=== PATIENT | male | born 1980 | race Caucasian/White ===

== ENCOUNTER 2024-01-30 12:56 | Inpatient (IN) | payer MEDICAID, SELFPAY ==
[2024-01-30 13:00] VITALS: BMI 32.1
[2024-01-30 13:05] VITALS: BP 114/80; PULSE 78; RESP 18; TEMP 36.8; O2SAT 94
[2024-01-30 13:33] VITALS: BP 114/80; PULSE 78; RESP 18; TEMP 36.8; O2SAT 94
--- NOTE | 2024-01-30 13:40 | ED.C_ITS ---
Documented by User: CHANTALE Nguyen 01/30/24 15:10 HPI - Psych 2 General: Chief Complaint: Psychiatric Symptoms Stated Complaint: mhe Time Seen by Provider: 01/30/24 13:06 Source: patient Mode of arrival: EMS Limitations: no limitations History of Present Illness: Patient is a 43-year-old male who presents to the emergency department via ambulance due to homicidal and suicidal ideations onset today. Patient has extensive psychiatric history, states he was last seen here in the neuropsychiatric unit approximately 10 years ago. He states he has been taking his medications as prescribed and has been following up with psychiatry and therapy. He states today he got angry at his daughter's boyfriend, as reportedly he was not letting the patient see his grandchildren. This caused the patient to become homicidal against the boyfriend, however he called the ambulance before he let himself get out of control, per the patient. In addition he is also noting suicidal ideations where his plan is to cut himself, or bite himself to the extent to where his wounds cannot be repaired. He states that he thinks he needs to come and see a psychiatrist because of the thoughts, as they have been worsening recently. He denies any hallucinations at this time. He does state that he smokes marijuana regularly and did have a couple of shots prior to arrival to calm his nerves. At this time he is still saying he is suicidal and homicidal. No other medical symptoms to report. MD complaint: suicidal ideation Onset (ago): hour(s) Duration: constant History of same: Yes Relieving factors: none Context: significant life stressor Associated symptoms: Reports homicidal ideation and suicidal ideation; Deny auditory hallucinations or visual hallucinations If self harm: admits thoughts of self harm and has plan Review of Systems 2 General: Reports: 10 or more systems reviewed and unremarkable except in HPI and below Const: Denies: fever(s), chills or fatigue Eyes: Denies: change in vision ENMT: Denies: throat pain, ear or mastoid pain or nasal discharge Card: Denies: chest pain, palpitations, swelling of feet/ankles or lightheadedness Resp: Denies: dyspnea, productive cough or wheezing GI: Denies: abdominal pain, nausea, vomiting, diarrhea or constipation : Denies: flank pain, difficulty urinating, dysuria or urinary frequency Musc: Denies: neck pain, back pain or joint pain Skin/Breast: Denies: rash Neuro: Denies: headache(s), numbness in extremities or weakness in extremities Psych: Reports: suicidal ideation and homicidal ideation; Denies: visual hallucinations, auditory hallucinations or tactile hallucinations PFSH ED 2 PFSH: Medical History Psychiatric care Physical Exam 2 Const: COMMON NORMALS: no acute distress, patient oriented x3 and no limitations GENERAL APPEARANCE: cooperative, comfortable and well developed ORIENTATION/CONSCIOUSNESS: Yes awake, Yes oriented to person, Yes oriented to place and Yes oriented to time HENMT: COMMON NORMALS: normocephalic, atraumatic and hearing grossly normal bilaterally HEAD & SCALP: normocephalic and atraumatic Eye: COMMON NORMALS: Equal, round and reactive pupils present, EOMs intact bilaterally and conjunctivae normal CONJUNCTIVA: Yes conjunctivae normal P UPIL: Yes Equal, round and reactive pupils present Neck/C-Spine: COMMON NORMALS: full ROM, supple and no JVD Resp: COMMON NORMALS: normal respiratory effort, No retractions, No use of accessory muscles and clear to auscultation bilaterally AUSCULTATION: clear to auscultation bilaterally Cardio: COMMON NORMALS: no JVD, regular rate, regular rhythm, No clicks present (Cardio), No murmurs present (Cardio) and No rub (Cardio) RATE: r egular rate RHYTHM: regular rhythm GI: COMMON NORMALS: Normal to inspection, nondistended, normoactive bowel sounds present, Soft to palpation and non-tender AUSCULTATION: Yes normoactive bowel sounds PALPATION: Yes Soft to palpation RECTAL EXAM: Yes deferred Extremity: COMMON NORMALS: normal to inspection, full ROM and capillary refill normal Neuro: COMMON NORMALS: patient oriented x3, CN's II-XII intact bilaterally, moves all extremities, no focal motor deficits and no sensory deficits noted SENSORIUM/ORIENTATION: Yes oriented to person, Yes oriented to place and Yes oriented to time Psych: COMMON NORMALS: mental status grossly normal, Normal thought process present and speech normal APPEARANCE: Yes grossly normal ATTITUDE: Yes calm ACTIVITY/MOTOR BEHAVIOR: Yes appropriate eye contact SPEECH: Yes normal speech MOOD & AFFECT: Yes euthymic mood THOUGHT PROCESS: Normal thought process present THOUGHT CONTENT: Yes Suicidality present, Yes Homicidality present and No Hallucination(s) present Skin: COMMON NORMALS: no rashes or lesions noted GENERAL SKIN EXAM: no rashes or lesions noted Course 2 Vital Signs: Vital signs: Vital Signs Temperature 98.3 F 01/30/24 13:33 Pulse Rate 78 01/30/24 13:33 Respiratory Rate 18 01/30/24 13:33 Blood Pressure 114/80 01/30/24 13:33 Pulse Oximetry 94 01/30/24 13:33 Oxygen Delivery Me thod Room Air 01/30/24 13:33 MDM - Psych Medical Decision Making Patient brought in by ambulance for suicidal and homicidal ideations, patient reports history of the same. Plan was to bite himself beyond repair until he bleeds out. He was calm and cooperative on examination, urine drug screen revealed positive for opiates and marijuana use. Additionally his alcohol was elevated as he took some shots prior to coming in to try to calm his nerves. He is cleared medically, and his case is discussed with psychiatrist Dr. Miller who accept patient for admission. Patient's case discussed with Dr. King here in the emergency department. Lab Data 01/30/24 14:22 01/30/24 14:22 Laboratory Results WBC 7.90 10^3/uL (3.29-11.43) 01/30/24 14:22 RBC 4.68 10^6/uL (3.85-5.65) 01/30/24 14:22 Hgb 14.60 g/dL (11.27-16.99) 01/30/24 14:22 Hct 44.0 % (37-53) 01/30/24 14:22 MCV 94.0 fl (82-101) 01/30/24 14:22 MCH 31.2 pg (27-33) 01/30/24 14:22 MCHC 33.2 g/dL (30-55) 01/30/24 14:22 RDW 13.9 % (12.1-15.1) 01/30/24 14:22 Plt Count 130 10^3/cmm (157-399) L 01/30/24 14:22 MPV 9.4 fL (7.4-10.4) 01/30/24 14:22 Neut % (Auto) 66.3 % 01/30/24 14:22 Lymph % (Auto) 26.3 % 01/30/24 14:22 Weld % (Auto) 5.4 % 01/30/24 14:22 Eos % (Auto) 1.1 % 01/30/24 14:22 Baso % (Auto) 0.6 % 01/30/24 14:22 Neut # (Auto) 5.23 10^3/uL (1.8-7.7) 01/30/24 14:22 Lymph # (Auto) 2.1 10^3/uL (0.8-4.8) 01/30/24 14:22 Weld # (Auto) 0.4 10^3/uL (0.2-0.9) 01/30/24 14:22 Eos # (Auto) 0.1 10^3/uL (0.0-0.8) 01/30/24 14:22 Baso # (Auto) 0.1 10^3/uL (0.0-0.1) 01/30/24 14:22 Nucleated RBC % (auto) 0 % 01/30/24 14:22 Nucleated RBCs # 0.0 /100WBC 01/30/24 14:22 Sodium 142 mmol/L (136-145) 01/30/24 14:22 Potassium 4.4 mmol/L (3.5-5.1) 01/30/24 14:22 Chloride 105 mmol/L (98-107) 01/30/24 14:22 Carbon Dioxide 24 mmol/L (22-29) 01/30/24 14:22 Anion Gap 17.4 (5-19) 01/30/24 14:22 BUN 11 mg/dL (6-20) 01/30/24 14:22 Creatinine 1.0 mg/dL (0.7-1.2) 01/30/24 14:22 GFR Calculation 80.8 mL/min (90-130) L 01/30/24 14:22 Glucose 86 mg/dL (65-115) 01/30/24 14:22 Calculated Osmolality 293 mOsm/kg (285-295) 01/30/24 14:22 Calcium 8.7 mg/dL (8.5-10.5) 01/30/24 14:22 Total Bilirubin 0.2 mg/dL (0.15-1.2) 01/30/24 14:22 AST 69 U/L (0-40) H 01/30/24 14:22 ALT 90 U/L (0-41) H 01/30/24 14:22 Alkaline Phosphatase 88 U/L (40-130) 01/30/24 14:22 Total Protein 7.1 g/dL (6.6-8.7) 01/30/24 14:22 Albumin 3.9 g/dL (3.5-5.2) 01/30/24 14:22 Globulin 3.2 g/dL (1.3-4.6) 01/30/24 14:22 Salicylates < 0.3 mg/dL (3-10) L 01/30/24 14:22 Urine Opiates Screen Positive ng/mL (Negative) H 01/30/24 14:00 Acetaminophen < 5.0 ug/mL (10-30) L 01/30/24 14:22 Ur Barbiturates Screen Negative ng/mL (Negative) 01/30/24 14:00 Ur Phencyclidine Scrn Negative ng/mL (Negative) 01/30/24 14:00 Ur Amphetamines Screen Negative ng/mL (Negative) 01/30/24 14:00 U Benzodiazepines Scrn Negative ng/mL (Negative) 01/30/24 14:00 Urine Cocaine Screen Negative ng/mL (Negative) 01/30/24 14:00 U Marijuana (THC) Screen Positive ng/mL (Negative) H 01/30/24 14:00 Ethyl Alcohol 157 mg/dL (0-10) H 01/30/24 14:22 No radiology studies performed this visit Discharge Plan Discharge Patient Disposition: Admitted As Inpatient Clinical Impression: Suicidal ideation, Homicidal ideations Condition: Stable Coding Level of Care Code ED Library Customer Service Clerk for Chg Fwd Documented by User: Mark King DO 01/30/24 18:04 HPI - Psych 2 General: Chief Complaint: Psychiatric Symptoms Stated Complaint: mhe Time Seen by Provider: 01/30/24 13:06 [facility] ED 2 PFS: Medical History Psychiatric care Course 2 Vital Signs: Vital signs: Vital Signs Temperature 98.3 F 01/30/24 13:33 Pulse Rate 78 01/30/24 13:33 Respiratory Rate 18 01/30/24 13:33 Blood Pressure 114/80 01/30/24 13:33 Pulse Oximetry 94 01/30/24 13:33 Oxygen Delivery Me thod Room Air 01/30/24 13:33 MDM - Psych Medical Decision Making Patient brought in by ambulance for suicidal and homicidal ideations, patient reports history of the same. Plan was to bite himself beyond repair until he bleeds out. He was calm and cooperative on examination, urine drug screen revealed positive for opiates and marijuana use. Additionally his alcohol was elevated as he took some shots prior to coming in to try to calm his nerves. He is cleared medically, and his case is discussed with psychiatrist Dr. Miller who accept patient for admission. Patient's case discussed with Dr. King here in the emergency department. Chart reviewed and patient discussed with midlevel. Agree with assessment and plan. Lab Data 01/30/24 14:22 01/30/24 14:22 Laboratory Results WBC 7.90 10^3/uL (3.29-11.43) 01/30/24 14:22 RBC 4.68 10^6/uL (3.85-5.65) 01/30/24 14:22 Hgb 14.60 g/dL (11.27-16.99) 01/30/24 14:22 Hct 44.0 % (37-53) 01/30/24 14:22 MCV 94.0 fl (82-101) 01/30/24 14:22 MCH 31.2 pg (27-33) 01/30/24 14:22 MCHC 33.2 g/dL (30-55) 01/30/24 14:22 RDW 13.9 % (12.1-15.1) 01/30/24 14:22 Plt Count 130 10^3/cmm (157-399) L 01/30/24 14:22 MPV 9.4 fL (7.4-10.4) 01/30/24 14:22 Neut % (Auto) 66.3 % 01/30/24 14:22 Lymph % (Auto) 26.3 % 01/30/24 14:22 Weld % (Auto) 5.4 % 01/30/24 14:22 Eos % (Auto) 1.1 % 01/30/24 14:22 Baso % (Auto) 0.6 % 01/30/24 14:22 Neut # (Auto) 5.23 10^3/uL (1.8-7.7) 01/30/24 14:22 Lymph # (Auto) 2.1 10^3/uL (0.8-4.8) 01/30/24 14:22 Weld # (Auto) 0.4 10^3/uL (0.2-0.9) 01/30/24 14:22 Eos # (Auto) 0.1 10^3/uL (0.0-0.8) 01/30/24 14:22 Baso # (Auto) 0.1 10^3/uL (0.0-0.1) 01/30/24 14:22 Nucleated RBC % (auto) 0 % 01/30/24 14:22 Nucleated RBCs # 0.0 /100WBC 01/30/24 14:22 Sodium 142 mmol/L (136-145) 01/30/24 14:22 Potassium 4.4 mmol/L (3.5-5.1) 01/30/24 14:22 Chloride 105 mmol/L (98-107) 01/30/24 14:22 Carbon Dioxide 24 mmol/L (22-29) 01/30/24 14:22 Anion Gap 17.4 (5-19) 01/30/24 14:22 BUN 11 mg/dL (6-20) 01/30/24 14:22 Creatinine 1.0 mg/dL (0.7-1.2) 01/30/24 14:22 GFR Calculation 80.8 mL/min (90-130) L 01/30/24 14:22 Glucose 86 mg/dL (65-115) 01/30/24 14:22 Calculated Osmolality 293 mOsm/kg (285-295) 01/30/24 14:22 Calcium 8.7 mg/dL (8.5-10.5) 01/30/24 14:22 Total Bilirubin 0.2 mg/dL (0.15-1.2) 01/30/24 14:22 AST 69 U/L (0-40) H 01/30/24 14:22 ALT 90 U/L (0-41) H 01/30/24 14:22 Alkaline Phosphatase 88 U/L (40-130) 01/30/24 14:22 Total Protein 7.1 g/dL (6.6-8.7) 01/30/24 14:22 Albumin 3.9 g/dL (3.5-5.2) 01/30/24 14:22 Globulin 3.2 g/dL (1.3-4.6) 01/30/24 14:22 Salicylates < 0.3 mg/dL (3-10) L 01/30/24 14:22 Urine Opiates Screen Positive ng/mL (Negative) H 01/30/24 14:00 Acetaminophen < 5.0 ug/mL (10-30) L 01/30/24 14:22 Ur Barbiturates Screen Negative ng/mL (Negative) 01/30/24 14:00 Ur Phencyclidine Scrn Negative ng/mL (Negative) 01/30/24 14:00 Ur Amphetamines Screen Negative ng/mL (Negative) 01/30/24 14:00 U Benzodiazepines Scrn Negative ng/mL (Negative) 01/30/24 14:00 Urine Cocaine Screen Negative ng/mL (Negative) 01/30/24 14:00 U Marijuana (THC) Screen Positive ng/mL (Negative) H 01/30/24 14:00 Ethyl Alcohol 157 mg/dL (0-10) H 01/30/24 14:22 Discharge Plan Discharge Patient Disposition: Admitted As Inpatient Clinical Impression: Suicidal ideation, Homicidal ideations Condition: Stable Coding Level of Care Code ED Library Customer Service Clerk for Tmaiko Blackwell
[2024-01-30 14:18] LABS: Amphetamines Screen Urine Negative (Negative); Barbiturates Screen Urine Negative (Negative); Benzodiazepines Screen Urine Negative (Negative); Cocaine Screen Urine Negative (Negative); Opiate Screen Urine Positive (Negative); PCP Screen Urine Negative (Negative); THC Screen Urine Positive (Negative)
[2024-01-30 14:30] LABS: Basophils # 0.1 10^3/uL (0.0-0.1); Basophils % 0.6 %; Eosinophils # 0.1 10^3/uL (0.0-0.8); Eosinophils % 1.1 %; Lymphocytes # 2.1 10^3/uL (0.8-4.8); Lymphocytes % 26.3 %; Mean Corpuscular HGB Conc 33.2 g/dL (30-55); Mean Corpuscular Hemoglobin 31.2 pg (27-33); Mean Platelet Volume 9.4 fL (7.4-10.4); Monocytes # 0.4 10^3/uL (0.2-0.9); Monocytes % 5.4 %; Neutrophils # 5.23 10^3/uL (1.8-7.7); Neutrophils % 66.3 %; Nucleated Red Blood Cells % 0 %; Platelet Count 130 10^3/cmm (157-399); Red Blood Count 4.68 10^6/uL (3.85-5.65); Red Cell Distribution Width 13.9 % (12.1-15.1)
[2024-01-30 14:50] LABS: Alanine Aminotransferase 90 U/L (0-41); Albumin Level 3.9 g/dL (3.5-5.2); Alcohol Level 157 mg/dL (0-10); Alkaline Phosphatase 88 U/L (40-130); Anion Gap 17.4 (5-19); Aspartate Amino Transferase 69 U/L (0-40); Blood Urea Nitrogen 11 mg/dL (6-20); Calcium 8.7 mg/dL (8.5-10.5); Carbon Dioxide 24 mmol/L (22-29); Chloride 105 mmol/L (98-107); Creatinine Clr Calc Pharmacy 124.9239; Globulin 3.2 g/dL (1.3-4.6); Glomerular Filtration Rate 80.8 mL/min (90-130); Glucose 86 mg/dL (65-115); Osmolality Calculated 293 mOsm/kg (285-295); Potassium 4.4 mmol/L (3.5-5.1); Sodium 142 mmol/L (136-145); Total Bilirubin 0.2 mg/dL (0.15-1.2); Total Protein 7.1 g/dL (6.6-8.7)
[2024-01-30 14:51] LABS: Acetaminophen < 5.0 ug/mL (10-30); Salicylate < 0.3 mg/dL (3-10)
[2024-01-30 19:21] VITALS: BP 136/94; PULSE 72; RESP 18; O2SAT 95
[2024-01-30 20:54] VITALS: BP 146/104; PULSE 89; RESP 18; TEMP 36.8; O2SAT 95
[2024-01-31 00:01] VITALS: BP 122/83; PULSE 76; RESP 17; TEMP 36.8; O2SAT 94
[2024-01-31 04:06] VITALS: BP 122/81; PULSE 62; RESP 17; O2SAT 93
[2024-01-31 07:39] VITALS: BP 131/87; PULSE 81; RESP 17; TEMP 36.7; O2SAT 96
[2024-01-31] MEDS: lamoTRIgine 100 mg Tablet PO ×2 (09:03→18:11)
[2024-01-31] MEDS: lisinopril 20 mg Tablet PO (09:03)
[2024-01-31] MEDS: OLANZapine 10 mg TABLET PO (09:03)
[2024-01-31] MEDS: pantoprazole DR 40 mg Tablet PO (09:03)
[2024-01-31] MEDS: multivitamin therapeutic Tablet 1 TAB PO (09:03)
[2024-01-31] MEDS: thiamine 100 mg Tablet PO (09:03)
[2024-01-31] MEDS: chlorPROMazine 25 mg Tablet PO ×3 (09:03→20:23)
[2024-01-31] MEDS: duloxetine 60 mg Capsule PO ×2 (09:03→18:11)
[2024-01-31] MEDS: folic acid 1 mg Tablet PO (09:03)
--- NOTE | 2024-01-31 10:10 | PC.NURSE ---
Upon entering patient's room, staff noted that he had a necklace on with a very large charm attached. Protocol for neuropsych patients is to remove any jewelry, or items, that could be a potential threat to staff or patients. It became apparent that when he was admitted that these actions were not taken. This particular patient had endorsed suicidal and homicidal ideations to staff, making this particularly concerning in his case. This incident was reported to unit supervisor, Sri Ospina, who is also acting as traffic warehouse supervisor at this time. Security, Maicol Celaya, was also notified. Staff requested that patient give staff the necklace to put in his belongings. Patient agreed and handed his necklace to staff willingly and without issue.
[2024-01-31 12:00] VITALS: BP 119/79; PULSE 83; RESP 18; O2SAT 98
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
[2024-01-31 16:00] VITALS: BP 123/83; PULSE 92; RESP 18; TEMP 36.6; O2SAT 96
[2024-01-31 20:00] VITALS: BP 145/103; PULSE 62; RESP 18; TEMP 36.6; O2SAT 97
[2024-01-31] MEDS: trazodone 150 mg Tablet 300 MG PO (20:23)
[2024-01-31] MEDS: prazosin 5 mg Capsule PO (20:23)
[2024-02-01] VITALS: BP 126/85; PULSE 64; RESP 16; O2SAT 95
[2024-02-01 04:00] VITALS: BP 129/95; PULSE 85; RESP 18; TEMP 36.9; O2SAT 95
[2024-02-01 07:53] VITALS: BP 131/91; PULSE 80; RESP 17; TEMP 36.8; O2SAT 94
[2024-02-01] MEDS: thiamine 100 mg Tablet PO (08:14)
[2024-02-01] MEDS: multivitamin therapeutic Tablet 1 TAB PO (08:14)
[2024-02-01] MEDS: pantoprazole DR 40 mg Tablet PO (08:14)
[2024-02-01] MEDS: lisinopril 20 mg Tablet PO (08:14)
[2024-02-01] MEDS: OLANZapine 10 mg TABLET PO (08:14)
[2024-02-01] MEDS: chlorPROMazine 25 mg Tablet PO (08:14)
[2024-02-01] MEDS: lamoTRIgine 100 mg Tablet PO (08:15)
[2024-02-01] MEDS: duloxetine 60 mg Capsule PO (08:15)
[2024-02-01] MEDS: folic acid 1 mg Tablet PO (08:15)
[2024-02-01 12:00] VITALS: BP 114/77; PULSE 76; RESP 17; TEMP 36.9; O2SAT 95
[2024-02-01 13:33] VITALS: BP 114/77; PULSE 76; RESP 17; TEMP 36.9; O2SAT 95
--- NOTE | 2024-02-01 14:21 | P.NPUDS_ITS ---
Diagnoses at Discharge Discharge Diagnosis (1) Bipolar 1 disorder: Status: Acute (2) Alcohol use disorder, severe, dependence: Status: Acute (3) Cannabis use disorder, severe, dependence: Status: Acute (4) Trauma and stressor-related disorder: Status: Acute (5) Homicidal ideations: Status: Acute Reason for Visit Reason for Visit: mhe Involuntary Hold Information 96 Hour Hold: 96 Hour Involuntary Admission: No Mental Status Exam MSE Comments: This is an obese white male in hospital scrubs was limited grooming but adequate eye contact. No abnormal movements except for mild psychomotor retardation. Cooperative with exam in mild distress. Speech was normal rate and decreased volume. Mood described as better than yesterday/great, affect mostly euthymic. Thought process linear. Thought content: Patient denied suicidal but recent aggressive/homicidal ideation, there were no delusions reported or noted, he endorsed chronic auditory hallucinations but denied visual. The patient reported feeling great on the day of the consultation. He denied having any current thoughts of self-harm or harm towards others. He reported hearing things even while on medication. The patient appeared to be in a stable mental state during the consultation. He did not appear to be attending to internal stimuli. Attention and concentration were limited and memory appeared somewhat unreliable but likely intentionally, but none were formally tested. He is alert and oriented x 3. Insight and appear improving/fair impulse control is limited but improving. Discharge Data Studies Completed and Pending: Laboratory Results WBC 7.90 10^3/uL (3.2 9-11.43) 01/30/24 14:22 RBC 4.68 10^6/uL (3.8 5-5.65) 01/30/24 14:22 Hgb 14.60 g/dL (11.27 -16.99) 01/30/24 14:22 Hct 44.0 % (37-53) 01/30/24 14:22 MCV 94.0 fl (82-101) 01/30/24 14:22 MCH 31.2 pg (27-33) 01/30/24 14:22 MCHC 33.2 g/dL (30-55) 01/30/24 14:22 RDW 13.9 % (12.1-15.1 ) 01/30/24 14:22 Plt Count 130 10^3/cmm (157 -399) L 01/30/24 14:22 MPV 9.4 fL (7.4-10.4) 01/30/24 14:22 Neut % (Auto) 66.3 % 01/30/24 14:22 Lymph % (Auto) 26.3 % 01/30/24 14:22 Blanco % (Auto) 5.4 % 01/30/24 14:22 Eos % (Auto) 1.1 % 01/30/24 14:22 Baso % (Auto) 0.6 % 01/30/24 14:22 Neut # (Auto) 5.23 10^3/uL (1.8 -7.7) 01/30/24 14:22 Lymph # (Auto) 2.1 10^3/uL (0.8- 4.8) 01/30/24 14:22 Blanco # (Auto) 0.4 10^3/uL (0.2- 0.9) 01/30/24 14:22 Eos # (Auto) 0.1 10^3/uL (0.0- 0.8) 01/30/24 14:22 Baso # (Auto) 0.1 10^3/uL (0.0- 0.1) 01/30/24 14:22 Nucleated RBC % (a uto) 0 % 01/30/24 14:22 Nucleated RBCs # 0.0 /100WBC 01/30/24 14:22 Sodium 142 mmol/L (136-1 45) 01/30/24 14:22 Potassium 4.4 mmol/L (3.5-5 .1) 01/30/24 14:22 Chloride 105 mmol/L (98-10 7) 01/30/24 14:22 Carbon Dioxide 24 mmol/L (22-29) 01/30/24 14:22 Anion Gap 17.4 (5-19) 01/30/24 14:22 BUN 11 mg/dL (6-20) 01/30/24 14:22 Creatinine 1.0 mg/dL (0.7-1. 2) 01/30/24 14:22 GFR Calculation 80.8 mL/min (90-1 30) L 01/30/24 14:22 Glucose 86 mg/dL (65-115) 01/30/24 14:22 Calculated Osmolal ity 293 mOsm/kg (285- 295) 01/30/24 14:22 Calcium 8.7 mg/dL (8.5-10 .5) 01/30/24 14:22 Total Bilirubin 0.2 mg/dL (0.15-1 .2) 01/30/24 14:22 AST 69 U/L (0-40) H 01/30/24 14:22 ALT 90 U/L (0-41) H 01/30/24 14:22 Alkaline Phosphata se 88 U/L (40-130) 01/30/24 14:22 Total Protein 7.1 g/dL (6.6-8.7 ) 01/30/24 14:22 Albumin 3.9 g/dL (3.5-5.2 ) 01/30/24 14:22 Globulin 3.2 g/dL (1.3-4.6 ) 01/30/24 14:22 Salicylates < 0.3 mg/dL (3-10 ) L 01/30/24 14:22 Urine Opiates Scre en Positive ng/mL (N egative) H 01/30/24 14:00 Acetaminophen < 5.0 ug/mL (10-3 0) L 01/30/24 14:22 Ur Barbiturates Sc reen Negative ng/mL (N egative) 01/30/24 14:00 Ur Phencyclidine S crn Negative ng/mL (N egative) 01/30/24 14:00 Ur Amphetamines Sc reen Negative ng/mL (N egative) 01/30/24 14:00 U Benzodiazepines Scrn Negative ng/mL (N egative) 01/30/24 14:00 Urine Cocaine Scre en Negative ng/mL (N egative) 01/30/24 14:00 U Marijuana (THC) Screen Positive ng/mL (N egative) H 01/30/24 14:00 Ethyl Alcohol 157 mg/dL (0-10) H 01/30/24 14:22 Vitals: Last Vital Signs Temp 98.4 F 02/01/24 13:33 Pulse 76 02/01/24 13:33 Resp 17 02/01/24 13:33 BP 114/77 02/01/24 13:33 Pulse Ox 95 02/01/24 13:33 O2 Del Method Room Air 02/01/24 00:00 Discharge Plan Discharge Patient Disposition: Home Condition: Stable Prescriptions: New Invega Trinza 819 mg/2.63 mL syringe 819 mg IM ONCE 90 Days Qty: 236.7 1RF Continued lisinopril 20 mg tablet 20 mg PO DAILY Invega Sustenna 234 mg/1.5 mL syringe 234 mg IM Q30D Qty: 1.5 1RF Rx Instructions: LAST INJECTION WAS 01/22/2024. lamotrigine [Lamictal] 100 mg tablet 100 mg PO BID Qty: 60 1RF duloxetine [Cymbalta] 60 mg capsule,delayed release(DR/EC) 60 mg PO BID Qty: 60 1RF chlorpromazine 25 mg tablet 25 mg PO TID cyclobenzaprine 10 mg tablet 10 mg PO BID PRN (Reason: Spasms) Zyprexa 10 mg tablet 10 mg PO DAILY Protonix 40 mg tablet,delayed release (DR/EC) 40 mg PO DAILY prazosin 5 mg capsule 5 mg PO BEDTIME Ventolin HFA 90 mcg/actuation HFA aerosol inhaler 2 puff INHALATION QID PRN (Reason: Shortness Of Breath Or Wheezing) trazodone 150 mg tablet 300 mg PO BEDTIME Discharge Orders: Discharge Order (Routine); Ordered 02/01/24 Ordered By: Lucio Miller Referrals: Darrius Thakur APRN [Primary Care Provider] - Discharge Diet: Regular Discharge Activity: Resume usual activity Patient Instructions: Alcohol Abuse, Bipolar Disorder (DC), Suicide Prevention (DC), Opioid Safety Discharge Attestations NPU Time Spent in Discharge Care*: less than 30 min Specific Discharge Activities: Specific discharge activities: educating patient, discussing with family service caseworker/social workers/dc planners, documenting/other paperwork and evaluating patient/reviewing data Coding Level of Care Code Acute Code for [facility] Fwd Diagnoses Bipolar 1 disorder F31.9 Alcohol use disorder, severe, dependence F10.20 Cannabis use disorder, severe, dependence F12.20 Trauma and stressor-related disorder F43.9 Homicidal ideations R45.850
--- NOTE | 2024-02-01 15:10 | PC.NURSE ---
I opened this patient's chart to help the primary nurse set up a medicaid transport ride.
--- NOTE | 2024-02-01 15:42 | PC.NURSE ---
Attempted to secure a ride home for patient with his [place] medicaid. However, they were not able to provide ride services for him according to the retail customer service representative this RN spoke to. This RN then obtained a quote from [employer] and [employer] for a ride and the retail customer service representative stated it would be $45. This was relayed to house superintendent, Heide, who said she would call the AOC to get it approved for the hospital to be billed for the ride. Later Heide called back to say that the AOC, Maicol Burgos, had given this RN the approval to set up the ride for him.
== END 2024-02-01 15:47 | disposition home or self-care (01) | DRG 885 ==
LOC: ER 15:09 → NP 18:41
PROVIDERS: Admitting Provider Psychiatry & Neurology Psychiatry; Emergency Provider Physician Assistant; Family Provider Nurse Practitioner Family; PCP Nurse Practitioner Family; Visit Provider Psychiatry & Neurology Psychiatry
DX: F31.32 Bipolar disorder, current episode depressed, moderate (principal); R45.851 Suicidal ideations; R45.850 Homicidal ideations; F17.210 Nicotine dependence, cigarettes, uncomplicated; F20.9 Schizophrenia, unspecified; F12.20 Cannabis dependence, uncomplicated; F10.20 Alcohol dependence, uncomplicated; F43.10 Post-traumatic stress disorder, unspecified; F41.9 Anxiety disorder, unspecified; Z91.51 Personal history of suicidal behavior; Z81.3 Family history of other psychoactive substance abuse and dependence
CPT/HCPCS: 80053; 80306; 80307; 85025; 96372; 99285; J3411; J3535; Q0161

== ENCOUNTER 2024-07-11 19:11 | Inpatient (IN) | payer MEDICAID, SELFPAY ==
--- NOTE | 2024-07-11 19:20 | ED.C_ITS ---
HPI - Psych 2 General: Chief Complaint: Psychiatric Symptoms Stated Complaint: SI Time Seen by Provider: 07/11/24 19:12 Source: patient and EMS Mode of arrival: EMS Limitations: no limitations History of Present Illness: 43-year-old male states he has been suic idal last 2 days. He states that he has had a plan of slitting his wrist. He states he is scared that he is actually in a harm himself and called EMS so he could get help denies any worsening improving factors. Has extensive psych history in the past Associated symptoms: Reports depression and suicidal ideation Related Data Home Medications Medication Instructions Recorded Confirmed lisinopril 20 mg tablet 20 mg PO DAILY 11/18/23 01/30/24 albuterol sulfate 90 mcg/actuation 2 puff inhalation QID PRN 01/30/24 01/30/24 aerosol inhaler (Ventolin HFA) Shortness Of Breath Or Wheezing chlorpromazine 25 mg tablet 25 mg PO TID 01/30/24 01/30/24 cyclobenzaprine 10 mg tablet 10 mg PO BID PRN Spasms 01/30/24 01/30/24 olanzapine 10 mg tablet (Zyprexa) 10 mg PO DAILY 01/30/24 01/30/24 pantoprazole 40 mg tablet,delayed 40 mg PO DAILY 01/30/24 01/30/24 release (Protonix) prazosin 5 mg capsule 5 mg PO BEDTIME 01/30/24 01/30/24 trazodone 150 mg tablet 300 mg PO BEDTIME 01/30/24 01/30/24 Previous Rx's Medication Instructions Recorded duloxetine 60 mg capsule,delayed 60 mg PO BID #60 caps 11/18/23 release (Cymbalta) lamotrigine 100 mg tablet 100 mg PO BID #60 tabs 11/18/23 (Lamictal) paliperidone palmitate 234 mg/1.5 234 mg (1.5 mL) IM Q30D #1.5 mL 11/18/23 mL intramuscular syringe (Invega Sustenna) paliperidone palm (3 month) 819 819 mg (2.63 mL) IM ONCE 3 months 02/01/24 mg/2.63 mL intramuscular syringe #236.7 mL (Invega Trinza) Allergies Allergy/AdvReac Type Severity Reaction Status Date / Time Iodinated Contrast Media Allergy Severe ALGY-Anaphy Verified 05/12/24 13:48 laxis Review of Systems 2 Const: Denies: fever(s), chills, body aches or change in appetite ENMT: Denies: throat pain or dental pain Card: Denies: chest pain Resp: Denies: dyspnea GI: Denies: abdominal pain, nausea, vomiting or diarrhea : Denies: dysuria Musc: Denies: neck pain or back pain Skin/Breast: Denies: rash Neuro: Denies: headache(s) Psych: Reports: depression and suicidal ideation PFSH ED 2 PFSH: Medical History Psychiatric care Physical Exam 2 Const: COMMON NORMALS: no acute distress, patient oriented x3 and healthy appearing HENMT: COMMON NORMALS: normocephalic and atraumatic HEAD & SCALP: n ormocephalic and atraumatic Eye: COMMON NORMALS: conjunctivae normal CONJUNCTIVA: Yes conjunctivae normal Neck/C-Spine: COMMON NORMALS: full ROM and supple Chest: COMMONS NORMALS: normal inspection of the chest Resp: COMMON NORMALS: normal respiratory effort Cardio: COMMON NORMALS: regular rate, regular rhythm and No murmurs present (Cardio) RATE: regular rate RHYTHM: regular rhythm Extremity: COMMON NORMALS: normal to inspection and full ROM Neuro: COMMON NORMALS: patient oriented x3, moves all extremities and no focal motor deficits Psych: COMMON NORMALS: mental status grossly normal, Normal thought process present and cooperative THOUGHT PROCESS: Normal thought process present T HOUGHT CONTENT: Yes Suicidality present Skin: COMMON NORMALS: no rashes or lesions noted and no wounds GENERAL SKIN EXAM: no rashes or lesions noted Course 2 Vital Signs: Vital signs: Vital Signs Temperature 98.7 F 07/11/24 19:25 Pulse Rate 90 07/11/24 19:25 Respiratory Rate 18 07/11/24 19:25 Blood Pressure 98/64 07/11/24 19:25 Pulse Oximetry 92 07/11/24 19:25 Oxygen Delivery Me thod Room Air 07/11/24 19:25 MDM - Psych Medical Decision Making Patient presents here with suicidal ideations he is medically cleared placed on 96-hour hold I spoke to psychiatrist will admit. Medical Records I reviewed the patient's medical records. Lab Data I reviewed the patient's lab results. 07/11/24 20:43 07/11/24 20:43 Laboratory Results WBC 10.28 10^3/uL (3.29-11.43) 07/11/24 20:43 RBC 4.76 10^6/uL (3.85-5.65) 07/11/24 20:43 Hgb 14.50 g/dL (11.27-16.99) 07/11/24 20:43 Hct 43.6 % (37-53) 07/11/24 20:43 MCV 91.6 fl (82-101) 07/11/24 20:43 MCH 30.5 pg (27-33) 07/11/24 20:43 MCHC 33.3 g/dL (30-55) 07/11/24 20:43 RDW 13.7 % (12.1-15.1) 07/11/24 20:43 Plt Count 178 10^3/cmm (157-399) 07/11/24 20:43 MPV 9.7 fL (7.4-10.4) 07/11/24 20:43 Neut % (Auto) 55.6 % 07/11/24 20:43 Lymph % (Auto) 36.0 % 07/11/24 20:43 [place]gett % (Auto) 6.3 % 07/11/24 20:43 Eos % (Auto) 1.0 % 07/11/24 20:43 Baso % (Auto) 0.7 % 07/11/24 20:43 Neut # (Auto) 5.72 10^3/uL (1.8-7.7) 07/11/24 20:43 Lymph # (Auto) 3.7 10^3/uL (0.8-4.8) 07/11/24 20:43 [place] # (Auto) 0.7 10^3/uL (0.2-0.9) 07/11/24 20:43 Eos # (Auto) 0.1 10^3/uL (0.0-0.8) 07/11/24 20:43 Baso # (Auto) 0.1 10^3/uL (0.0-0.1) 07/11/24 20:43 Nucleated RBC % (auto) 0 % 07/11/24 20:43 Nucleated RBCs # 0.0 /100WBC 07/11/24 20:43 Urine Opiates Screen Negative ng/mL (Negative) 07/11/24 19:29 Ur Barbiturates Screen Negative ng/mL (Negative) 07/11/24 19:29 Ur Phencyclidine Scrn Negative ng/mL (Negative) 07/11/24 19:29 Ur Amphetamines Screen Negative ng/mL (Negative) 07/11/24 19:29 U Benzodiazepines Scrn Negative ng/mL (Negative) 07/11/24 19:29 Urine Cocaine Screen Negative ng/mL (Negative) 07/11/24 19:29 U Marijuana (THC) Screen Positive ng/mL (Negative) H 07/11/24 19:29 No radiology studies performed this visit Discharge Plan Discharge Patient Disposition: Admitted As Inpatient Clinical Impression: Suicidal ideation Condition: Stable Prescriptions: No Action lisinopril 20 mg tablet 20 mg PO DAILY Invega Sustenna 234 mg/1.5 mL syringe 234 mg IM Q30D Qty: 1.5 1RF Rx Instructions: LAST INJECTION WAS 01/22/2024. lamotrigine [Lamictal] 100 mg tablet 100 mg PO BID Qty: 60 1RF duloxetine [Cymbalta] 60 mg capsule,delayed release(DR/EC) 60 mg PO BID Qty: 60 1RF chlorpromazine 25 mg tablet 25 mg PO TID cyclobenzaprine 10 mg tablet 10 mg PO BID PRN (Reason: Spasms) Zyprexa 10 mg tablet 10 mg PO DAILY Protonix 40 mg tablet,delayed release (DR/EC) 40 mg PO DAILY prazosin 5 mg capsule 5 mg PO BEDTIME Ventolin HFA 90 mcg/actuation HFA aerosol inhaler 2 puff INHALATION QID PRN (Reason: Shortness Of Breath Or Wheezing) trazodone 150 mg tablet 300 mg PO BEDTIME Invega Trinza 819 mg/2.63 mL syringe 819 mg IM ONCE 90 Days Qty: 236.7 1RF Referrals: Darrius Thakur APRN [Primary Care Provider] - Coding Level of Care Code ED Machine Try Out Setter for Fatumag Rishi
[2024-07-11 19:25] VITALS: BP 98/64; PULSE 90; RESP 18; TEMP 37.1; O2SAT 92
--- NOTE | 2024-07-11 20:14 | PC.NURSE ---
96 HH Pt served with copy of 96 HH by this RN and security. Pt A&Ox3, pt pleasant, stating that he has been placed on a 96 HH before and denies any questions. Pt told sitter I called ahead and reserved a room.
[2024-07-11 20:48] LABS: Basophils # 0.1 10^3/uL (0.0-0.1); Basophils % 0.7 %; Eosinophils # 0.1 10^3/uL (0.0-0.8); Hematocrit 43.6 % (37-53); Lymphocytes # 3.7 10^3/uL (0.8-4.8); Mean Corpuscular HGB Conc 33.3 g/dL (30-55); Mean Corpuscular Hemoglobin 30.5 pg (27-33); Mean Corpuscular Volume 91.6 fl (82-101); Mean Platelet Volume 9.7 fL (7.4-10.4); Monocytes # 0.7 10^3/uL (0.2-0.9); Monocytes % 6.3 %; Neutrophils # 5.72 10^3/uL (1.8-7.7); Neutrophils % 55.6 %; Nucleated Red Blood Cells % 0 %; Platelet Count 178 10^3/cmm (157-399); Red Blood Count 4.76 10^6/uL (3.85-5.65); Red Cell Distribution Width 13.7 % (12.1-15.1); White Blood Count 10.28 10^3/uL (3.29-11.43)
[2024-07-11 20:57] LABS: Amphetamines Screen Urine Negative (Negative); Barbiturates Screen Urine Negative (Negative); Benzodiazepines Screen Urine Negative (Negative); Cocaine Screen Urine Negative (Negative); Opiate Screen Urine Negative (Negative); PCP Screen Urine Negative (Negative); THC Screen Urine Positive (Negative)
[2024-07-11 21:13] LABS: Alanine Aminotransferase 28 U/L (0-41); Albumin Level 3.8 g/dL (3.5-5.2); Alcohol Level 137 mg/dL (0-10); Alkaline Phosphatase 100 U/L (40-130); Anion Gap 14.6 (5-19); Aspartate Amino Transferase 33 U/L (0-40); Blood Urea Nitrogen 22 mg/dL (6-20); Calcium 8.7 mg/dL (8.5-10.5); Carbon Dioxide 25 mmol/L (22-29); Chloride 103 mmol/L (98-107); Creatinine Clr Calc Pharmacy 102.1083; Globulin 3.1 g/dL (1.3-4.6); Glomerular Filtration Rate 65.5 mL/min (90-130); Glucose 108 mg/dL (65-115); Osmolality Calculated 290 mOsm/kg (285-295); Potassium 4.6 mmol/L (3.5-5.1); Sodium 138 mmol/L (136-145); Total Bilirubin 0.2 mg/dL (0.15-1.2); Total Protein 6.9 g/dL (6.6-8.7)
[2024-07-11 21:17] LABS: Acetaminophen < 5.0 ug/mL (10-30); Salicylate < 0.3 mg/dL (3-10)
[2024-07-11 22:54] VITALS: BP 118/87; PULSE 85; RESP 16; TEMP 36.6; O2SAT 95
[2024-07-12] VITALS (7 sets, daily range): BP systolic 118–171; BP diastolic 77–101; PULSE 64–85; RESP 16–18; TEMP 36.4–36.9; O2SAT 93–99
[2024-07-12] MEDS: chlorPROMazine 25 mg Tablet PO ×3 (08:39→20:48)
[2024-07-12] MEDS: folic acid 1 mg Tablet PO (08:39)
[2024-07-12] MEDS: duloxetine 60 mg Capsule PO ×2 (08:39→16:54)
[2024-07-12] MEDS: pantoprazole DR 40 mg Tablet PO (08:39)
[2024-07-12] MEDS: multivitamin therapeutic Tablet 1 TAB PO (08:39)
[2024-07-12] MEDS: lamoTRIgine 100 mg Tablet PO ×2 (08:39→16:54)
[2024-07-12] MEDS: hyDROXYzine 25 mg Capsule 50 MG PO (08:39)
[2024-07-12] MEDS: OLANZapine 10 mg TABLET PO (08:39)
[2024-07-12] MEDS: thiamine 100 mg Tablet PO (08:39)
[2024-07-12] MEDS: lisinopril 20 mg Tablet PO (08:39)
[2024-07-12] MEDS: GLECAPREVIR PIBRENTASVIR 3 EACH PO (09:01)
--- NOTE | 2024-07-12 15:27 | P.NPUHP_ITS ---
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 mental health treatment who presents reporting that he did not get his follow-up injection after being discharged in January and has begun to have auditory hallucinations again. He has a history of schizoaffective disorder and ongoing auditory hallucinations, the patient appeared stable and denied any current thoughts of self-harm or harm towards others. 1. Encourage individual, group and milieu therapies. 2. Continue current medication but will get him a prescription for Invega Trinza at discharge. And determine whether he has had transit before to decide how to initiate the Invega loading doses. 3. Encourage sober living after discharge at the highest level care to which he is willing to commit. 4. [id number]-[id number] checks 5. Patient is voluntary and may consider discharge tomorrow versus Friday. Involuntary Hold Information 2 96 Hour Hold: 96 Hour Involuntary Admission: Yes 96 Hour Hold Ending Date: 07/19/23 96 Hour Hold Ending Time: 00:01 Other Hold: Hold End Date: 07/19/24 Attestations NPU 2 Medical Necessity Statement*: Inpatient hospitalization is medically necessary and the clinically appropriate intervention ?at this time.? We will monitor/initiate medications and make changes as indicated.? The patient will be in the hospital for over 2 midnights.? Likely length of stay 3-5 days. Coding Level of Care Code Acute Code for [facility] Diagnoses Bipolar 1 disorder F31.9 Alcohol use disorder, severe, dependence F10.20 Cannabis use disorder, severe, dependence F12.20 Trauma and stressor-related disorder F43.9 Suicidal ideation R45.199
[2024-07-12] MEDS: OLANZapine 5 mg ODT PO (16:56)
[2024-07-12] MEDS: acetaminophen 325 mg Tablet 650 MG PO (16:56)
--- NOTE | 2024-07-12 16:58 | PC.NURSE ---
PT C/O OF ANXIETY, ZYDIS 5 MG WAS GIVEN ORDERED FOR INCREASED ANXIETY.. PT WAS GIVEN VISTARIL 50 MG EARLIER IN THE DAY AND IT WAS EFFECTIVE ADN PT WAS ABLE TO BE CALM AND REST. PT ALSO C/O OF HEADACHE BUT STATED HE HAD NO PAIN. WHEN RN ASKED TO RATE HEADACHE PAIN PT STATED NONE RN USED FLACC SCALE AND PT PAIN IN HEAD WAS ASSESSED TO BE 3/10, TYLENOL 650 MG GIVEN ORDERED FOR HEADACHE/PAIN. SUPPORT VOICED.
[2024-07-12] MEDS: prazosin 5 mg Capsule PO (20:48)
[2024-07-13 04:00] VITALS: BP 110/74; PULSE 72; RESP 18; TEMP 37.2; O2SAT 96
[2024-07-13] MEDS: acetaminophen 325 mg Tablet 650 MG PO ×2 (07:22→19:21)
[2024-07-13 08:00] VITALS: BP 154/90; PULSE 77; RESP 17; O2SAT 92
[2024-07-13] MEDS: hyDROXYzine 25 mg Capsule 50 MG PO ×2 (08:36→21:04)
[2024-07-13] MEDS: multivitamin therapeutic Tablet 1 TAB PO (08:36)
[2024-07-13] MEDS: duloxetine 60 mg Capsule PO ×2 (08:36→17:25)
[2024-07-13] MEDS: chlorPROMazine 25 mg Tablet PO ×3 (08:36→21:04)
[2024-07-13] MEDS: thiamine 100 mg Tablet PO (08:36)
[2024-07-13] MEDS: OLANZapine 10 mg TABLET PO (08:37)
[2024-07-13] MEDS: GLECAPREVIR PIBRENTASVIR 3 EACH PO (08:37)
[2024-07-13] MEDS: folic acid 1 mg Tablet PO (08:37)
[2024-07-13] MEDS: lamoTRIgine 100 mg Tablet PO ×2 (08:37→17:25)
[2024-07-13] MEDS: pantoprazole DR 40 mg Tablet PO (08:37)
[2024-07-13] MEDS: lisinopril 20 mg Tablet PO (08:37)
[2024-07-13 12:00] VITALS: BP 161/91; PULSE 89; RESP 18; O2SAT 93
[2024-07-13] MEDS: paliperidone palmitate 234 mg Syringe IM (15:54)
[2024-07-13 16:00] VITALS: BP 124/76; PULSE 90; RESP 18; TEMP 37.4; O2SAT 94
--- NOTE | 2024-07-13 16:03 | PC.NURSE ---
invega 234 Administered Invega Sustenna 234 mg/1.5mL into patient's left deltoid muscle. Patient tolerated well. Following administration, patient continues to pace the hallway, does not appear distressed.
--- NOTE | 2024-07-13 18:01 | P.NPUPN_ITS ---
Subjective NPU 2 Subjective: Patient presented today reporting that he is doing fine as far as the shot he got today. He continued to be somewhat isolative but getting out on the unit more. We discussed wanting to make sure he gets his second injection before leaving but discussed that that can be done in 4 days instead of 1 week. Otherwise he denied any side effects to medications. Mental Status Exam 2 MSE Comments: This is an obese white male in hospital scrubs was limited grooming but adequate eye contact. No abnormal movements except for mild psychomotor retardation. Cooperative with exam in mild distress. Speech was normal rate and decreased volume. Mood described as happy to be getting help, affect mostly euthymic. Thought process linear. Thought content: Patient denied suicidal or homicidal ideation, there were no delusions reported but some paranoia noted noted, he endorsed chronic auditory hallucinations but denied visual hallucinations. He did not appear to be attending to internal stimuli. Attention and concentration were limited and memory appeared somewhat unreliable, but none were formally tested. He is alert and oriented x 3. Insight and judgment appears limited impulse control is limited versus impaired. Vitals/I&O/Wt Last Vital Signs Temp 99.3 F 07/13/24 16:00 Pulse 90 07/13/24 16:00 Resp 18 07/13/24 16:00 BP 124/76 07/13/24 16:00 Pulse Ox 94 07/13/24 16:00 O2 Del Method Room Air 07/13/24 04:00 Weight last 48 hrs Weight 108.862 kg Data NPU 07/11/24 20:43 07/11/24 20:43 A&P Assessment and plan (1) Bipolar 1 disorder: (2) Alcohol use disorder, severe, dependence: (3) Cannabis use disorder, severe, dependence: (4) Trauma and stressor-related disorder: (5) Suicidal ideation: Plan Patient is a 43-year-old male with a long history of mental health treatment who presents reporting that he did not get his follow-up injection after being discharged in January and has begun to have auditory hallucinations again. He has a history of schizoaffective disorder and ongoing auditory hallucinations, the patient appeared stable and denied any current thoughts of self-harm or harm towards others. 1. Encourage individual, group and milieu therapies. 2. Continue current medication but will get him a prescription for Invega Trinza at discharge. And determine whether he has had transit before to decide how to initiate the Invega loading doses. Started Invega Sustenna 234 mg IM to the deltoid loading dose to restart his IM paliperidone with a goal for Invega Trinza. 3. Encourage sober living after discharge at the highest level care to which he is willing to commit. 4. [id number] checks 5. Patient is voluntary and may consider discharge tomorrow versus Friday. Involuntary Hold Information 2 96 Hour Hold: 96 Hour Involuntary Admission: Yes 96 Hour Hold Ending Date: 07/19/23 96 Hour Hold Ending Time: 00:01 Other Hold: Hold End Date: 07/19/24 Attestations NPU 2 Medical Necessity Statement*: Inpatient hospitalization is medically necessary and the clinically appropriate intervention ?at this time.? We will monitor/initiate medications and make changes as indicated.? The patient will be in the hospital for over 2 midnights.? Likely length of stay 3-5 days. Coding Level of Care Code Acute Code for [facility] Fwd Diagnoses Bipolar 1 disorder F31.9 Alcohol use disorder, severe, dependence F10.20 Cannabis use disorder, severe, dependence F12.20 Trauma and stressor-related disorder F43.9 Suicidal ideation R45.858
[2024-07-13 20:00] VITALS: BP 134/85; PULSE 89; RESP 18; TEMP 36.6; O2SAT 96
[2024-07-13] MEDS: trazodone 50 mg Tablet PO (21:04)
[2024-07-13] MEDS: prazosin 5 mg Capsule PO (21:04)
[2024-07-14 06:00] VITALS: BP 139/90; PULSE 102; RESP 20; TEMP 36.5; O2SAT 93
[2024-07-14] MEDS: ibuprofen 600 mg Tablet PO (07:24)
--- NOTE | 2024-07-14 07:44 | P.NPUPN_ITS ---
Subjective NPU 2 Subjective: Patient presented today reporting that things are going okay. He continued to endorse having improvement in his symptoms since he had the injection a couple days ago. We discussed giving him the second injection as early as we can which should be on Friday. Also there was some issue with some medication for hepatitis C and we agreed we would work with the only pharmacy [facility] that is open to see if he is using samples or whether we can get it ordered through his insurance to make sure he has it tomorrow. He denied any side effects to the medication. Mental Status Exam 2 MSE Comments: This is an obese white male in hospital scrubs was limited grooming but adequate eye contact. No abnormal movements except for mild psychomotor retardation. Cooperative with exam in mild distress. Speech was normal rate and decreased volume. Mood described as feeling better, affect mostly euthymic. Thought process linear. Thought content: Patient denied suicidal or homicidal ideation, there were no delusions reported but some paranoia noted noted, he endorsed chronic auditory hallucinations but denied visual hallucinations. He did not appear to be attending to internal stimuli. Attention and concentration were limited and memory appeared somewhat unreliable, but none were formally tested. He is alert and oriented x 3. Insight and judgment appears limited impulse control is limited versus impaired. Vitals/I&O/Wt Last Vital Signs Temp 97.7 F 07/14/24 06:00 Pulse 102 H 07/14/24 06:00 Resp 20 H 07/14/24 06:00 BP 139/90 07/14/24 06:00 Pulse Ox 93 07/14/24 06:00 O2 Del Method Room Air 07/14/24 06:00 Data NPU 07/11/24 20:43 07/11/24 20:43 A&P Assessment and plan (1) Bipolar 1 disorder: (2) Alcohol use disorder, severe, dependence: (3) Cannabis use disorder, severe, dependence: (4) Trauma and stressor-related disorder: (5) Suicidal ideation: Plan Patient is a 43-year-old male with a long history of mental health treatment who presents reporting that he did not get his follow-up injection after being discharged in January and has begun to have auditory hallucinations again. He has a history of schizoaffective disorder and ongoing auditory hallucinations, the patient appeared stable and denied any current thoughts of self-harm or harm towards others. 1. Encourage individual, group and milieu therapies. 2. Continue current medication but will get him a prescription for Invega Trinza at discharge. And determine whether he has had transit before to decide how to initiate the Invega loading doses. Started Invega Sustenna 234 mg IM to the deltoid loading dose to restart his IM paliperidone with a goal for Invega Trinza. Plan to give the second injection of loading dose for the Invega Sustenna likely Friday with hopes of discharge Friday if he continues to remain stable. 3. Encourage sober living after discharge at the highest level care to which he is willing to commit. 4. [id number] checks 5. Patient is voluntary and may consider discharge tomorrow versus Friday. Involuntary Hold Information 2 96 Hour Hold: 96 Hour Involuntary Admission: Yes 96 Hour Hold Ending Date: 07/19/23 96 Hour Hold Ending Time: 00:01 Other Hold: Hold End Date: 07/19/24 Attestations NPU 2 Medical Necessity Statement*: Inpatient hospitalization is medically necessary and the clinically appropriate intervention ?at this time.? We will monitor/initiate medications and make changes as indicated.? Likely length of stay 3-5 days. Coding Level of Care Code Acute Code for [facility] Fwd Diagnoses Bipolar 1 disorder F31.9 Alcohol use disorder, severe, dependence F10.20 Cannabis use disorder, severe, dependence F12.20 Trauma and stressor-related disorder F43.9 Suicidal ideation R45.851
[2024-07-14] MEDS: pantoprazole DR 40 mg Tablet PO (08:57)
[2024-07-14] MEDS: lisinopril 20 mg Tablet PO (08:57)
[2024-07-14] MEDS: thiamine 100 mg Tablet PO (08:57)
[2024-07-14] MEDS: chlorPROMazine 25 mg Tablet PO ×3 (08:57→20:19)
[2024-07-14] MEDS: duloxetine 60 mg Capsule PO ×2 (08:57→17:48)
[2024-07-14] MEDS: OLANZapine 10 mg TABLET PO (08:57)
[2024-07-14] MEDS: lamoTRIgine 100 mg Tablet PO ×2 (08:57→17:48)
[2024-07-14] MEDS: folic acid 1 mg Tablet PO (08:57)
[2024-07-14] MEDS: multivitamin therapeutic Tablet 1 TAB PO (08:57)
[2024-07-14] MEDS: GLECAPREVIR PIBRENTASVIR 3 EACH PO (08:58)
[2024-07-14 14:00] VITALS: BP 117/79; PULSE 86; RESP 18; TEMP 37.2; O2SAT 94
[2024-07-14 20:12] VITALS: BP 130/87; PULSE 85; RESP 16; TEMP 36.9; O2SAT 95
[2024-07-14] MEDS: prazosin 5 mg Capsule PO (20:19)
[2024-07-14] MEDS: hyDROXYzine 25 mg Capsule 50 MG PO (20:19)
[2024-07-14] MEDS: trazodone 50 mg Tablet PO (20:19)
[2024-07-15 06:00] VITALS: BP 138/93; PULSE 87; RESP 16; TEMP 36.5; O2SAT 94
[2024-07-15] MEDS: thiamine 100 mg Tablet PO (08:10)
[2024-07-15] MEDS: chlorPROMazine 25 mg Tablet PO ×3 (08:10→20:09)
[2024-07-15] MEDS: lamoTRIgine 100 mg Tablet PO ×2 (08:10→17:43)
[2024-07-15] MEDS: lisinopril 20 mg Tablet PO (08:10)
[2024-07-15] MEDS: pantoprazole DR 40 mg Tablet PO (08:10)
[2024-07-15] MEDS: OLANZapine 10 mg TABLET PO (08:10)
[2024-07-15] MEDS: multivitamin therapeutic Tablet 1 TAB PO (08:10)
[2024-07-15] MEDS: haloperidol 5 mg Tablet PO (08:10)
[2024-07-15] MEDS: duloxetine 60 mg Capsule PO ×2 (08:10→17:43)
[2024-07-15] MEDS: folic acid 1 mg Tablet PO (08:11)
--- NOTE | 2024-07-15 09:39 | PC.NURSE ---
Morning assessment Patient endorses auditory hallucinations this morning. Given haldol 5mg PO. Patient cooperative and pleasant during assessment. This nurse attempting to get Madarioyret
--- NOTE | 2024-07-15 10:22 | PC.NURSE ---
This nurse called verbal Rx for Mavyret into [facility] in [place]. Pharmacist to run [place] medicaid and let us know if it is not covered. Otherwise, medication should be ready to pickup tomorrow afternoon at in .
[2024-07-15 14:00] VITALS: BP 131/87; PULSE 102; RESP 18; TEMP 37.5; O2SAT 94
[2024-07-15] MEDS: prazosin 5 mg Capsule PO (20:09)
[2024-07-15] MEDS: trazodone 50 mg Tablet PO ×2 (20:09→21:38)
[2024-07-15] MEDS: OLANZapine 5 mg ODT PO (20:09)
[2024-07-15] MEDS: hyDROXYzine 25 mg Capsule 50 MG PO (20:09)
[2024-07-15] MEDS: acetaminophen 325 mg Tablet 650 MG PO (20:09)
[2024-07-15 20:23] VITALS: BP 127/87; PULSE 86; RESP 18; TEMP 36.8; O2SAT 96
--- NOTE | 2024-07-15 20:25 | W.PM.NPUPNS ---
Subjective NPU Subjective: Patient presented today reporting that he is feeling pretty good. We discussed the plan to give him his second Invega Sustenna loading dose tomorrow 156 mg IM to the deltoid. We discussed discharge by Friday but the possibility of discharge tomorrow. He is optimistic about getting back on track now that he has his medication and denied any side effects or any other concerns. Mental Status Exam MSE Comments: This is an obese white male in hospital scrubs was limited grooming but adequate eye contact. No abnormal movements except for mild psychomotor retardation. Cooperative with exam in mild distress. Speech was normal rate and decreased volume. Mood described as feeling better, affect mostly euthymic. Thought process linear. Thought content: Patient denied suicidal or homicidal ideation, there were no delusions reported but some paranoia noted noted, he endorsed chronic auditory hallucinations but denied visual hallucinations. He did not appear to be attending to internal stimuli. Attention and concentration were limited and memory appeared somewhat unreliable, but none were formally tested. He is alert and oriented x 3. Insight and judgment appears limited impulse control is limited versus impaired. Vitals/I&O/Wt Last Vital Signs Temp 98.2 F 07/15/24 20:23 Pulse 86 07/15/24 20:23 Resp 18 07/15/24 20:23 BP 127/87 07/15/24 20:23 Pulse Ox 96 07/15/24 20:23 O2 Del Method Room Air 07/15/24 20:23 Data NPU 07/11/24 20:43 07/11/24 20:43 A&P Assessment and plan (1) Bipolar 1 disorder: (2) Alcohol use disorder, severe, dependence: (3) Cannabis use disorder, severe, dependence: (4) Trauma and stressor-related disorder: (5) Suicidal ideation: Plan Patient is a 43-year-old male with a long history of mental health treatment who presents reporting that he did not get his follow-up injection after being discharged in January and has begun to have auditory hallucinations again. He has a history of schizoaffective disorder and ongoing auditory hallucinations, the patient appeared stable and denied any current thoughts of self-harm or harm towards others. 1. Encourage individual, group and milieu therapies. 2. Continue current medication but will get him a prescription for Invega Trinza at discharge. And determine whether he has had transit before to decide how to initiate the Invega loading doses. Started Invega Sustenna 234 mg IM to the deltoid loading dose to restart his IM paliperidone with a goal for Invega Trinza. Plan to give the second injection of loading dose for the Invega Sustenna likely Friday with hopes of discharge Friday if he continues to remain stable. 3. Encourage sober living after discharge at the highest level care to which he is willing to commit. 4. [id number] checks 5. Patient is voluntary and may consider discharge tomorrow versus Friday. Involuntary Hold Information 96 Hour Hold: 96 Hour Involuntary Admission: Yes 96 Hour Hold Ending Date: 07/19/23 96 Hour Hold Ending Time: 00:01 Other Hold: Hold End Date: 07/19/24 Attestations NPU Medical Necessity Statement*: Inpatient hospitalization is medically necessary and the clinically appropriate intervention ?at this time.? We will monitor/initiate medications and make changes as indicated.? Likely length of stay 1-4 days. Coding Level of Care Code Acute Code for [facility] Fwd Diagnoses Bipolar 1 disorder F31.9 Alcohol use disorder, severe, dependence F10.20 Cannabis use disorder, severe, dependence F12.20 Trauma and stressor-related disorder F43.9 Suicidal ideation R45.853
--- NOTE | 2024-07-15 20:39 | PC.NURSE ---
UP IN DAY ROOM WATCHING TV. C/O RIB PAIN 8, TYLENOL 650 MG ORDERED FOR PAIN. DENIES SI/HI AT THIS TIME BUT CONTINUES TO ENDORSE HEARING VOICES DOES REPORT THE HALDOL THAT WAS GIVEN EARLIER DID HELP. RATES ANXIETY 12/21 AND DEPRESSION 0/. VISTARIL 50 MG GIVEN FOR INCREASED ANXIETY. TRAZODONE GIVEN FOR SLEEP. PT APPEARS TO BE IN GOOD SPIRITS THIS SHIFT. SUPPORT VOICED.
[2024-07-16 05:53] VITALS: BP 133/88; PULSE 106; RESP 20; TEMP 36.6; O2SAT 94
[2024-07-16] MEDS: folic acid 1 mg Tablet PO (08:35)
[2024-07-16] MEDS: pantoprazole DR 40 mg Tablet PO (08:35)
[2024-07-16] MEDS: chlorPROMazine 25 mg Tablet PO (08:35)
[2024-07-16] MEDS: lisinopril 20 mg Tablet PO (08:36)
[2024-07-16] MEDS: OLANZapine 10 mg TABLET PO (08:36)
[2024-07-16] MEDS: lamoTRIgine 100 mg Tablet PO (08:36)
[2024-07-16] MEDS: thiamine 100 mg Tablet PO (08:36)
[2024-07-16] MEDS: duloxetine 60 mg Capsule PO (08:36)
[2024-07-16] MEDS: multivitamin therapeutic Tablet 1 TAB PO (08:37)
[2024-07-16] MEDS: acetaminophen 325 mg Tablet 650 MG PO (09:04)
[2024-07-16] MEDS: paliperidone palmitate 156 mg Syringe IM (09:12)
[2024-07-16] MEDS: ibuprofen 600 mg Tablet PO (11:55)
--- NOTE | 2024-07-16 12:13 | W.PM.NPUDCS ---
Diagnoses at Discharge Discharge Diagnosis (1) Bipolar 1 disorder: Status: Acute (2) Alcohol use disorder, severe, dependence: Status: Acute (3) Cannabis use disorder, severe, dependence: Status: Acute (4) Trauma and stressor-related disorder: Status: Acute (5) Suicidal ideation: Status: Acute Reason for Visit Reason for Visit: SI Involuntary Hold Information 96 Hour Hold: 96 Hour Involuntary Admission: Yes 96 Hour Hold Ending Date: 07/19/23 96 Hour Hold Ending Time: 00:01 Other Hold: Hold End Date: 07/19/24 Mental Status Exam MSE Comments: This is an obese white male in hospital scrubs was limited grooming but adequate eye contact. No abnormal movements except for mild psychomotor retardation. Cooperative with exam in mild distress. Speech was normal rate and decreased volume. Mood described as feeling better, affect mostly euthymic. Thought process linear. Thought content: Patient denied suicidal or homicidal ideation, there were no delusions reported but some paranoia noted noted, he endorsed chronic auditory hallucinations but denied visual hallucinations. He did not appear to be attending to internal stimuli. Attention and concentration were limited and memory appeared somewhat unreliable, but none were formally tested. He is alert and oriented x 3. Insight and judgment appears limited impulse control is limited versus impaired. Discharge Data Studies Completed and Pending: Laboratory Results WBC 10.28 10^3/uL (3. 29-11.43) 07/11/24 20:43 RBC 4.76 10^6/uL (3.8 5-5.65) 07/11/24 20:43 Hgb 14.50 g/dL (11.27 -16.99) 07/11/24 20:43 Hct 43.6 % (37-53) 07/11/24 20:43 MCV 91.6 fl (82-101) 07/11/24 20:43 MCH 30.5 pg (27-33) 07/11/24 20:43 MCHC 33.3 g/dL (30-55) 07/11/24 20:43 RDW 13.7 % (12.1-15.1 ) 07/11/24 20:43 Plt Count 178 10^3/cmm (157 -399) 07/11/24 20:43 MPV 9.7 fL (7.4-10.4) 07/11/24 20:43 Neut % (Auto) 55.6 % 07/11/24 20:43 Lymph % (Auto) 36.0 % 07/11/24 20:43 [place] % (Auto) 6.3 % 07/11/24 20:43 Eos % (Auto) 1.0 % 07/11/24 20:43 Baso % (Auto) 0.7 % 07/11/24 20:43 Neut # (Auto) 5.72 10^3/uL (1.8 -7.7) 07/11/24 20:43 Lymph # (Auto) 3.7 10^3/uL (0.8- 4.8) 07/11/24 20:43 [place] # (Auto) 0.7 10^3/uL (0.2- 0.9) 07/11/24 20:43 Eos # (Auto) 0.1 10^3/uL (0.0- 0.8) 07/11/24 20:43 Baso # (Auto) 0.1 10^3/uL (0.0- 0.1) 07/11/24 20:43 Nucleated RBC % (a uto) 0 % 07/11/24 20:43 Nucleated RBCs # 0.0 /100WBC 07/11/24 20:43 Sodium 138 mmol/L (136-1 45) 07/11/24 20:43 Potassium 4.6 mmol/L (3.5-5 .1) 07/11/24 20:43 Chloride 103 mmol/L (98-10 7) 07/11/24 20:43 Carbon Dioxide 25 mmol/L (22-29) 07/11/24 20:43 Anion Gap 14.6 (5-19) 07/11/24 20:43 BUN 22 mg/dL (6-20) H 07/11/24 20:43 Creatinine 1.2 mg/dL (0.7-1. 2) 07/11/24 20:43 GFR Calculation 65.5 mL/min (90-1 30) L 07/11/24 20:43 Glucose 108 mg/dL (65-115 ) 07/11/24 20:43 Calculated Osmolal ity 290 mOsm/kg (285- 295) 07/11/24 20:43 Calcium 8.7 mg/dL (8.5-10 .5) 07/11/24 20:43 Total Bilirubin 0.2 mg/dL (0.15-1 .2) 07/11/24 20:43 AST 33 U/L (0-40) 07/11/24 20:43 ALT 28 U/L (0-41) 07/11/24 20:43 Alkaline Phosphata se 100 U/L (40-130) 07/11/24 20:43 Total Protein 6.9 g/dL (6.6-8.7 ) 07/11/24 20:43 Albumin 3.8 g/dL (3.5-5.2 ) 07/11/24 20:43 Globulin 3.1 g/dL (1.3-4.6 ) 07/11/24 20:43 Salicylates < 0.3 mg/dL (3-10 ) L 07/11/24 20:43 Urine Opiates Scre en Negative ng/mL (N egative) 07/11/24 19:29 Acetaminophen < 5.0 ug/mL (10-3 0) L 07/11/24 20:43 Ur Barbiturates Sc reen Negative ng/mL (N egative) 07/11/24 19:29 Ur Phencyclidine S crn Negative ng/mL (N egative) 07/11/24 19:29 Ur Amphetamines Sc reen Negative ng/mL (N egative) 07/11/24 19:29 U Benzodiazepines Scrn Negative ng/mL (N egative) 07/11/24 19:29 Urine Cocaine Scre en Negative ng/mL (N egative) 07/11/24 19:29 U Marijuana (THC) Screen Positive ng/mL (N egative) H 07/11/24 19:29 Ethyl Alcohol 137 mg/dL (0-10) H 07/11/24 20:43 Vitals: Last Vital Signs Temp 97.8 F 07/16/24 05:53 Pulse 106 H 07/16/24 05:53 Resp 20 H 07/16/24 05:53 BP 133/88 07/16/24 05:53 Pulse Ox 94 07/16/24 05:53 O2 Del Method Room Air 07/16/24 05:53 Discharge Plan Discharge Condition: Stable Prescriptions: New thiamine mononitrate (vit B1) [Vitamin B-1 (mononitrate)] 100 mg Tablet 100 mg PO DAILY 30 Days Qty: 30 1RF trazodone 50 mg Tablet 50 mg PO BEDTIME PRN (Reason: Sleep) 30 Days Qty: 30 1RF hydroxyzine pamoate 25 mg Capsule 50 mg PO Q6H PRN (Reason: Anxiety) 30 Days Qty: 120 1RF Continued lisinopril 20 mg tablet 20 mg PO DAILY Mavyret 100-40 mg Tablet 3 tab PO DAILY Rx Instructions: must administer with a meal/food olanzapine [Zyprexa] 10 mg tablet 10 mg PO DAILY Qty: 30 1RF prazosin 5 mg capsule 5 mg PO BEDTIME Qty: 30 1RF chlorpromazine 25 mg tablet 25 mg PO TID 30 Days Qty: 90 1RF lamotrigine 100 mg tablet 100 mg PO BID Qty: 60 1RF duloxetine [Cymbalta] 60 mg capsule,delayed release(DR/EC) 60 mg PO BID Qty: 60 1RF Invega Sustenna 234 mg/1.5 mL syringe 234 mg IM Q30D Qty: 1.5 1RF Rx Instructions: Next injection 08/16/2024. Then as directed pantoprazole [Protonix] 40 mg tablet,delayed release (DR/EC) 40 mg PO DAILY albuterol sulfate [Ventolin HFA] 90 mcg/actuation HFA aerosol inhaler 2 puff INHALATION QID PRN (Reason: Shortness Of Breath Or Wheezing) Invega Trinza 819 mg/2.63 mL syringe 819 mg IM ONCE 90 Days Qty: 236.7 1RF Discharge Orders: Discharge Order (Routine); Ordered 07/16/24 Ordered By: Lucio Miller Referrals: Darrius Thakur APRN [Primary Care Provider] - Discharge Activity: Resume usual activity Patient Instructions: Opioid Safety Discharge Attestations NPU Time Spent in Discharge Care*: less than 30 min Specific Discharge Activities: Specific discharge activities: educating patient, discussing with family caseworker/social workers/dc planners, documenting/other paperwork and evaluating patient/reviewing data Coding Level of Care Code Acute Code for [facility] Fwd Diagnoses Bipolar 1 disorder F31.9 Alcohol use disorder, severe, dependence F10.20 Cannabis use disorder, severe, dependence F12.20 Trauma and stressor-related disorder F43.9 Suicidal ideation R45.851
[2024-07-16 12:58] VITALS: BP 133/88; PULSE 106; RESP 20; TEMP 36.6; O2SAT 94
== END 2024-07-16 13:12 | disposition home or self-care (01) | DRG 885 ==
LOC: ER 21:01 → NP 21:31
PROVIDERS: Admitting Provider Psychiatry & Neurology Psychiatry; Emergency Provider Emergency Medicine; Family Provider Nurse Practitioner Family; PCP Nurse Practitioner Family; Visit Provider Psychiatry & Neurology Psychiatry
DX: F31.9 Bipolar disorder, unspecified (principal); R45.851 Suicidal ideations; F10.20 Alcohol dependence, uncomplicated; F12.20 Cannabis dependence, uncomplicated; F43.9 Reaction to severe stress, unspecified; T43.596A Underdosing of other antipsychotics and neuroleptics, initial encounter; Y90.6 Blood alcohol level of 120-199 mg/100 ml; E66.9 Obesity, unspecified; Z68.30 Body mass index [BMI] 30.0-30.9, adult
CPT/HCPCS: 36415; 80053; 80306; 80307; 85025; 96372; 97150; 97165; 99285; J3535; Q0161

== ENCOUNTER → 2024-09-24 14:40 | Outpatient (BNVA) | payer MEDICAID, SELFPAY | PROVIDERS: Family Provider Nurse Practitioner Family; PCP Nurse Practitioner Family; Visit Provider Nurse Practitioner Psychiatric/Mental Health | DX: Z79.899 Other long term (current) drug therapy (principal) | CPT/HCPCS: 80061; 80307; 83036 ==